=== PATIENT | male | born 1965 | race African-American/Black ===

== ENCOUNTER → 2017-04-02 | Outpatient (CLI) | payer OTHER ==
[~2017-04-02] MED LIST: KEFLEX 500MG.500 MG PO; MEDROL 4MG. DOSE4 MG PO
[2017-04-02 13:42] LABS: BUN 17 mg/dL (7-18); PROSTATE-SPECIFIC ANTIGEN F/U 0.3 ng/mL (0.0-4.0)
[2017-04-02 13:54] LABS: GFR (ESTIMATED) 89 ML/MIN (>60)
== END ==
LOC: LAB 10:48
PROVIDERS: Internal Medicine
DX: I10 Essential (primary) hypertension (principal); E78.5 Hyperlipidemia, unspecified; Z84.2 Family history of other diseases of the genitourinary system